=== PATIENT | male | born 1935 | race Caucasian/White ===

== ENCOUNTER → 2016-09-21 | Outpatient (CLI) | payer MEDICARE ==
[~2016-09-21] MED LIST: ARICEPT10 MG PO; ASPIR 8181 MG PO; GLUCOPHAGE500 MG PO; LIPITOR80 MG PO; LOPRESSOR25 MG PO; NAMENDA10 MG PO; NITROSTAT0.4 MG SL; NORVASC10 MG PO; PLAVIX75 MG PO; VITAMIN D31000 UNIT PO; ZYLOPRIM300 MG PO
== END | disposition short-term general hospital (02) ==
LOC: CLCARD 08:22
DX: R09.89 Other specified symptoms and signs involving the circulatory and respiratory systems (principal); R42 Dizziness and giddiness; I25.10 Atherosclerotic heart disease of native coronary artery without angina pectoris; I48.0 Paroxysmal atrial fibrillation; I10 Essential (primary) hypertension; E78.5 Hyperlipidemia, unspecified; E11.9 Type 2 diabetes mellitus without complications; Z95.5 Presence of coronary angioplasty implant and graft